=== PATIENT | male | born 1990 | race American Indian/Alaskan Native ===

== ENCOUNTER 2020-06-04 14:54 | Emergency (ER) | payer SELFPAY ==
--- NOTE | 2020-06-04 15:03 | Event Note ---
ED Screening Note ED Screening Note: l flank pain; nausea x 1 day difficulty starting urine pmh none psh none rx otc for pain This initial assessment/diagnostic orders/clinical plan/treatment(s) is/are subject to change based on patients health status, clinical progression and re- assessment by fellow clinical providers in the ED. Further treatment and workup at subsequent clinical providers discretion. Patient/guardian urged not to elope from the ED as their condition may be serious if not clinically assessed and managed. Initial orders include: zen montanez
[2020-06-04] MEDS ORDERED: SODIUM CHLORIDE 0.9% 1000 ML 1,000 ML IV ONE (15:04)
[2020-06-04] MEDS ORDERED: ONDANSETRON 4 MG/2 ML INJ IV ONE (15:04)
[2020-06-04 15:57] LABS: Bilirubin,Urine NEG (Negative); Blood,Urine NEG (Negative); Color,Urine Yellow (Yellow); Mucus,Urine 1+ /HPF; Protein,Urine <15 mg/dL mg/dL (Negative); RBC,Urine < 1.0 /HPF (0.0-6.0); Urobilinogen,Urine < 2.0 mg/dL (<2.0)
--- NOTE | 2020-06-04 16:39 | Cat Scan Report ---
CT ABDOMEN AND PELVIS WITHOUT CONTRAST INDICATION / CLINICAL INFORMATION: Left flank pain. TECHNIQUE: Axial CT images were obtained through the abdomen and pelvis without IV contrast. All CT scans at [facility] location are performed using CT dose reduction for ALARA by means of automated exposure control. COMPARISON: None available. FINDINGS: LOWER CHEST: No significant abnormality. LIVER: No significant abnormality. GALLBLADDER: No significant abnormality. BILE DUCTS: No significant abnormality. PANCREAS: No significant abnormality. SPLEEN: No significant abnormality. ADRENALS: No significant abnormality. RIGHT KIDNEY / URETER: No significant abnormality. LEFT KIDNEY / URETER: No significant abnormality. STOMACH / SMALL BOWEL: No significant abnormality. COLON: No significant abnormality. APPENDIX: No significant abnormality. PERITONEUM: No free fluid. No free air. No fluid collection. LYMPH NODES: No significant adenopathy. AORTA / ARTERIES: No significant abnormality. IVC / VEINS: No significant abnormality. URINARY BLADDER: No significant abnormality. REPRODUCTIVE ORGANS: No significant abnormality. ADDITIONAL FINDINGS: Small fat-containing left inguinal hernia with prominent vessels in the distal i nguinal canal in the scrotum. SKELETAL SYSTEM: No significant abnormality. IMPRESSION: 1. No stones or hydronephrosis. 2. Small fat-containing left inguinal hernia with prominent vessels in the distal inguinal canal in t he scrotum. Signer Name: Erasmo Bower MD Signed: 06/04/2020 4:34 PM Workstation Name: [id number]
[2020-06-04 18:28] LABS: Hematocrit 45.2 % (35.5-45.6); Hemoglobin 15.3 gm/dl (11.8-15.2); Mean Corpuscular HGB Conc 34 % (32-34); Mean Corpuscular Volume 92 fl (84-94); Red Blood Count 4.92 M/mm3 (3.65-5.03); Red Cell Distribution Width 12.5 % (13.2-15.2)
[2020-06-04 18:44] LABS: BUN/Creatinine Ratio 14; Blood Urea Nitrogen 13 mg/dL (9-20); Calcium 9.3 mg/dL (8.4-10.2); Hemolysis Index 16
[2020-06-04 18:48] LABS: Platelet Count 265 K/mm3 (140-440)
[2020-06-04 19:29] LABS: Basophils % (Manual) 0 % (0.0-1.8); Eosinophils % (Manual) 0 % (0.0-4.3); Platelet Clumps Few; Total Cells Counted 100
--- NOTE | 2020-06-04 20:16 | Ultrasound Report ---
ULTRASOUND SCROTUM INDICATION / CLINICAL INFORMATION: testicular pain. COMPARISON: None available. FINDINGS -- RIGHT TESTIS: Size = 4.0 x 1.9 cm. - Appearance: No significant abnormality. - Cyst or Mass: None. - Color Doppler Flow: No significant abnormality. EPIDIDYMIS: No significant abnormality. HYDROCELE: None. VARICOCELE: None demonstrated. FINDINGS -- LEFT TESTIS: Size = 4.2 x 2.5 cm. - Appearance: Minimally heterogeneous appearance with significantly increased vascularization. - Cyst or Mass: None. - Color Doppler Flow: No significant abnormality. Increased color flow. EPIDIDYMIS: Enlarged and hypervascular. HYDROCELE: Complex septated left hydrocele measuring 3.2 x 1.8 x 0.6 cm. VARICOCELE: Present. ADDITIONAL FINDINGS: None. IMPRESSION: 1. Findings consistent with left-sided epididymoorchitis. 2. Minimally complex left hydrocele. 3. Left sided varicocele. Signer Name: Benton Hayes MD Signed: 06/04/2020 8:11 PM Workstation Name: [id number]
[2020-06-04] MEDS ORDERED: oxyCODONE /ACETAMINOPHEN 5-325MG TAB PO ONE (20:49)
[2020-06-04] MEDS ORDERED: AZITHROMYCIN 250 MG TAB PO ONE (20:49)
[2020-06-04] MEDS ORDERED: cefTRIAXone/NS 1 GM/50 ML 1 GM/50 ML BAG IV ONE (20:49)
--- NOTE | 2020-06-04 21:18 | Emergency Department Report ---
ED Male HPI - General Chief complaint: Urogenital-Male Stated complaint: ABD PAIN Time Seen by Provider: 06/04/20 15:02 Source: patient Mode of arrival: Ambulatory Limitations: No Limitations - History of Present Illness Initial comments: Patient is a 30-year-old male presents emergency room with complaints of left testicular pain and swelling that began yesterday. He states he has pain to the left lower abdomen and left lower back. Patient states that 2 weeks ago he had pain in his left testicle that it spontaneously resolved. He states he is sexually active 3 days ago and reports that he uses protection. He states that he also has dysuria but denies any penile discharge. Patient states that he also has associated nausea and fever. He denies any vomiting or diarrhea. He denies any hematuria. He denies any past medical history. No allergies to medications. He states he has had STD history of gonorrhea in 2018 which he reports he received treatment for. - Related Data Previous Rx's Medication Instructions Recorded Last Taken Type Clotrimazole [Antifungal] 1 applicatio TP BID 14 Days #1 06/04/20 Unknown Rx cream..g. Doxycycline Hyclate [Doxycycline 100 mg PO BID 10 Days #20 tablet 06/04/20 Unknown Rx Hyclate TAB] Allergies Allergy/AdvReac Type Severity Reaction Status Date / Time No Known Allergies Allergy Verified 06/04/20 15:13 ED Review of Systems ROS: Stated complaint: ABD PAIN Other details as noted in HPI Comment: All other systems reviewed and negative ED Past Medical Hx - Past Medical History Previous Medical History?: No - Surgical History Past Surgical History?: No - Social History Smoking Status: Never Smoker Substance Use Type: Alcohol, Marijuana - Medications Home Medications: Home Medications Medication Instructions Recorded Confirmed Last Taken Type Clotrimazole [Antifungal] 1 applicatio TP BID 14 Days #1 06/04/20 Unknown Rx cream..g. Doxycycline Hyclate [Doxycycline 100 mg PO BID 10 Days #20 tablet 06/04/20 Unknown Rx Hyclate TAB] ED Physical Exam - General Limitations: No Limitations General appearance: alert, in no apparent distress - Head Head exam: Present: atraumatic, normocephalic - Eye Eye exam: Present: normal appearance - ENT ENT exam: Present: mucous membranes moist - Respiratory Respiratory exam: Present: normal lung sounds bilaterally. Absent: respiratory distress, wheezes, rales, rhonchi, stridor, chest wall tenderness, accessory muscle use, decreased breath sounds, prolonged expiratory - Cardiovascular Cardiovascular Exam: Present: regular rate, normal rhythm, normal heart sounds. Absent: systolic murmur, diastolic murmur, rubs, gallop - GI/Abdominal GI/Abdominal exam: Present: soft, normal bowel sounds. 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 Absent: urethral discharge External exam: Present: other (small area to the left side of the groin with erythematous macules with associated scaling at the edges, no blistering, no necrosis, no surrounding skin erythema) - Back Exam Back exam: Absent: CVA tenderness (R), CVA tenderness (L) - Neurological Exam Neurological exam: Present: alert, oriented X3 - Psychiatric Psychiatric exam: Present: normal affect, normal mood - Skin Skin exam: Present: warm, dry, intact ED Course Vital Signs 06/04/20 06/04/20 06/04/20 15:13 22:20 23:20 Temperature 100.2 F H 102.1 F H 98.4 F Pulse Rate 105 H 110 H 87 Respiratory 20 17 16 Rate Blood Pressure 111/71 Blood Pressure 117/75 [Right] O2 Sat by Pulse 97 99 100 Oximetry ED Medical Decision Making - Lab Data Result diagrams: 06/04/20 18:03 06/04/20 18:03 Lab Results 06/04/20 06/04/20 06/04/20 Range/Units 15:39 18:03 18:03 WBC 19.6 H (4.5-11.0) K/mm3 RBC 4.92 (3.65-5.03) M/mm3 Hgb 15.3 H (11.8-15.2) gm/dl Hct 45.2 (35.5-45.6) % MCV 92 (84-94) fl MCH 31 (28-32) pg MCHC 34 (32-34) % RDW 12.5 L (13.2-15.2) % Plt Count 265 (140-440) K/mm3 Add Manual Diff Complete Total Counted 100 Seg Neutrophils % Dustless Operator Seg Neuts % (Manual) 88.0 H (40.0-70.0) % Band Neutrophils % 0 % Lymphocytes % (Manual) 6.0 L (13.4-35.0) % Reactive Lymphs % (Man) 0 % Monocytes % (Manual) 6.0 (0.0-7.3) % Eosinophils % (Manual) 0 (0.0-4.3) % Basophils % (Manual) 0 (0.0-1.8) % Metamyelocytes % 0 % Myelocytes % 0 % Promyelocytes % 0 % Blast Cells % 0 % Nucleated RBC % Not Reportable Seg Neutrophils # Man 17.2 H (1.8-7.7) K/mm3 Band Neutrophils # 0.0 K/mm3 Lymphocytes # (Manual) 1.2 (1.2-5.4) K/mm3 Abs React Lymphs (Man) 0.0 K/mm3 Monocytes # (Manual) 1.2 H (0.0-0.8) K/mm3 Eosinophils # (Manual) 0.0 (0.0-0.4) K/mm3 Basophils # (Manual) 0.0 (0.0-0.1) K/mm3 Metamyelocytes # 0.0 K/mm3 Myelocytes # 0.0 K/mm3 Promyelocytes # 0.0 K/mm3 Blast Cells # 0.0 K/mm3 WBC Morphology Not Reportable Hypersegmented Neuts Not Reportable Hyposegmented Neuts Not Reportable Hypogranular Neuts Not Reportable Smudge Cells Not Reportable Toxic Granulation Not Reportable Toxic Vacuolation Not Reportable Dohle Bodies Not Reportable Pelger-Huet Anomaly Not Reportable Delbert Rods Not Reportable Platelet Estimate Not Reportable Clumped Platelets Few Plt Clumps, EDTA Not Reportable Large Platelets Not Reportable Giant Platelets Not Reportable Platelet Satelliting Not Reportable Plt Morphology Comment Not Reportable RBC Morphology Not Reportable Dimorphic RBCs Not Reportable Polychromasia Not Reportable Hypochromasia Not Reportable Poikilocytosis Not Reportable Anisocytosis Not Reportable Microcytosis Not Reportable Macrocytosis Not Reportable Spherocytes Not Reportable Pappenheimer Bodies Not Reportable Sickle Cells Not Reportable Target Cells Not Reportable Tear Drop Cells Not Reportable Ovalocytes Not Reportable Helmet Cells Not Reportable [place] Bodies Not Reportable [place]op Rings Not Reportable Exeter Cells Not Reportable Bite Cells Not Reportable Crenated Cell Not Reportable Elliptocytes Not Reportable Acanthocytes (Spur) Not Reportable Rouleaux Not Reportable Hemoglobin C Crystals Not Reportable Schistocytes Not Reportable Malaria parasites Not Reportable Dae Bodies Not Reportable Hem Pathologist Commnt No Sodium 134 L (137-145) mmol/L Potassium 4.0 (3.6-5.0) mmol/L Chloride 101.4 (98-107) mmol/L Carbon Dioxide 21 L (22-30) mmol/L Anion Gap 16 mmol/L BUN 13 (9-20) mg/dL Creatinine 0.9 (0.8-1.3) mg/dL Estimated GFR > 60 ml/min BUN/Creatinine Ratio 14 % Glucose 118 H (75-100) mg/dL Calcium 9.3 (8.4-10.2) mg/dL Urine Color Yellow (Yellow) Urine Turbidity Clear (Clear) Urine pH 6.0 (5.0-7.0) Ur Specific Fenton 1.012 (1.003-1.030) Urine Protein <15 mg/dl (Negative) mg/dL Urine Glucose (UA) Neg (Negative) mg/dL Urine Ketones Neg (Negative) mg/dL Urine Blood Neg (Negative) Urine Nitrite Neg (Negative) Urine Bilirubin Neg (Negative) Urine Urobilinogen < 2.0 (<2.0) mg/dL Ur Leukocyte Esterase Mod (Negative) Urine WBC (Auto) 8.0 H (0.0-6.0) /HPF Urine RBC (Auto) < 1.0 (0.0-6.0) /HPF U Epithel Cells (Auto) < 1.0 (0-13.0) /HPF Urine Mucus 1+ /HPF Vital Signs 06/04/20 06/04/20 06/04/20 15:13 22:20 23:20 Temperature 100.2 F H 102.1 F H 98.4 F Pulse Rate 105 H 110 H 87 Respiratory 20 17 16 Rate Blood Pressure 111/71 Blood Pressure 117/75 [Right] O2 Sat by Pulse 97 99 100 Oximetry - Radiology Data Radiology results: report reviewed cc: [facility] ABDOMEN AND PELVIS WITHOUT CONTRAST INDICATION / CLINICAL INFORMATION: Left flank pain. TECHNIQUE: Axial CT images were obtained through the abdomen and pelvis without IV contrast. All CT scans at this location are performed using CT dose reduction for ALARA by means of automated exposure control. COMPARISON: None available. FINDINGS: LOWER CHEST: No significant abnormality. LIVER: No significant abnormality. GALLBLADDER: No significant abnormality. BILE DUCTS: No significant abnormality. PANCREAS: No significant abnormality. SPLEEN: No significant abnormality. ADRENALS: No significant abnormality. RIGHT KIDNEY / URETER: No significant abnormality. LEFT KIDNEY / URETER: No significant abnormality. STOMACH / SMALL BOWEL: No significant abnormality. COLON: No significant abnormality. APPENDIX: No significant abnormality. PERITONEUM: No free fluid. No free air. No fluid collection. LYMPH NODES: No significant adenopathy. AORTA / ARTERIES: No significant abnormality. IVC / VEINS: No significant abnormality. URINARY BLADDER: No significant abnormality. REPRODUCTIVE ORGANS: No significant abnormality. ADDITIONAL FINDINGS: Small fat-containing left inguinal hernia with prominent vessels in the distal inguinal canal in the scrotum. SKELETAL SYSTEM: No significant abnormality. IMPRESSION: 1. No stones or hydronephrosis. 2. Small fat-containing left inguinal hernia with prominent vessels in the distal inguinal canal in the scrotum. Signer Name: Erasmo Bower MD Signed: 06/04/2020 4:34 PM Workstation Name: [id number] Transcribed By: DT Dictated By: Alejandro Bower MD Electronically Authenticated By: Alejandro Bower MD Signed Date/Time: 06/04/201633 DD/ 32 TD/TT: ULTRASOUND SCROTUM INDICATION / CLINICAL INFORMATION: testicular pain. COMPARISON: None available. FINDINGS -- RIGHT TESTIS: Size = 4.0 x 1.9 cm. - Appearance: No significant abnormality. - Cyst or Mass: None. - Color Doppler Flow: No significant abnormality. EPIDIDYMIS: No significant abnormality. HYDROCELE: None. VARICOCELE: None demonstrated. FINDINGS -- LEFT TESTIS: Size = 4.2 x 2.5 cm. - Appearance: Minimally heterogeneous appearance with significantly increased vascularization. - Cyst or Mass: None. - Color Doppler Flow: No significant abnormality. Increased color flow. EPIDIDYMIS: Enlarged and hypervascular. HYDROCELE: Complex septated left hydrocele measuring 3.2 x 1.8 x 0.6 cm. VARICOCELE: Present. ADDITIONAL FINDINGS: None. IMPRESSION: 1. Findings consistent with left-sided epididymoorchitis. 2. Minimally complex left hydrocele. 3. Left sided varicocele. Signer Name: Benton Saldivar MD Signed: 06/04/2020 8:11 PM Workstation Name: [id number] Transcribed By: HANSA Dictated By: BENTON SALDIVAR Electronically Authenticated By: BENTON SALDIVAR Signed Date/Time: 06/04/202010 DD/ 05 TD/TT: - Medical Decision Making Patient is a 30-year-old male presents emergency room with complaints of left testicular pain and swelling that began yesterday. He states he has pain to the left lower abdomen and left lower back. Patient states that 2 weeks ago he had pain in his left testicle that it spontaneously resolved. He states he is sexually active 3 days ago and reports that he uses protection. He states that he also has dysuria but denies any penile discharge. Patient states that he also has associated nausea and fever. He denies any vomiting or diarrhea. He denies any hematuria. He denies any past medical history. No allergies to medications. He states he has had STD history of gonorrhea in 2018 which he reports he received treatment for. vitals with low grade temp and mild tachycardia which improved after medication administration. 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 Examination consistent with orchitis, epididymitis, tinea cruris. Labs significant for white blood cell count of 19,000. UA shows 8 white blood cells and moderate leukocyte esterase. G/C sent by refinisher from the urine sample. CT abd pelvis without contrast: 1. No stones or hydronephrosis. 2. Small fat-containing left inguinal hernia with prominent vessels in the distal inguinal canal in the scrotum. scrotal US with doppler: 1. Findings consistent with left-sided epididymoorchitis. 2. Minimally complex left hydrocele. 3. Left sided varicocele. Patient given azithromycin, ceftriaxone, Percocet and symptoms improved. Discussed all results with patient and patient given his ultrasound report and his CT report. Patient given prescription for doxycycline and clotrimazole. Advised patient Please use medication as prescribed. Please follow-up with a general surgeon regarding the hernia. please follow up with a urologist regarding the testicular findings. [facility]. 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 Please have any partner tested and treated as well. Avoid sexual intercourse. Return to emergency room for any new or worsening symptoms. - Differential Diagnosis Orchitis, epididymitis, STD, UTI, hernia, varicocele, hydrocele, torsion Critical care attestation.: If time is entered above; I have spent that time in minutes in the direct care of this critically ill patient, excluding procedure time. ED Disposition Clinical Impression: Left epididymitis, Orchitis of left testicle, Varicocele, Tinea cruris Hydrocele Qualifiers: Hydrocele type: infected Qualified Code(s): N43.1 - Infected hydrocele Inguinal hernia Qualifiers: Obstruction and gangrene presence: without obstruction or gangrene Laterality: unilateral Recurrence: non-recurrent Qualified Code(s): K40.90 - Unilateral inguinal hernia, without obstruction or gangrene, not specified as recurrent Disposition: DC- TO HOME OR SELFCARE Is pt being admited?: No Does the pt Need Aspirin: No Condition: Stable Instructions: Sexually Transmitted Diseases (ED), Safe Sex (ED), Epididymo- orchitis (ED), Inguinal Hernia (ED), Jock Itch (ED) Additional Instructions: Please use medication as prescribed. Please follow-up with a general surgeon regarding the hernia. please follow up with a urologist regarding the testicular findings. Please follow-up with the health department or clinic for full STD panel. 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 Please have any partner tested and treated as well. Avoid sexual intercourse. Return to emergency room for any new or worsening symptoms. [facility] Address: [address] [place] [id number] [facility], performs STD panels Prescriptions: Clotrimazole [Antifungal] 1 applicatio TP BID 14 Days #1 cream..g. Doxycycline Hyclate [Doxycycline Hyclate TAB] 100 mg PO BID 10 Days #20 tablet Referrals: [facility] [Outside] - 2-3 Days EMORY PHAN MD [Staff Physician] - 2-3 Days SHARON GRAY MD [Staff Physician] - 2-3 Days Forms: STI Treatment and Prevention Time of Disposition: 21:53 Print Language: CZECH
[2020-06-04] MEDS ORDERED: IBUPROFEN 800 MG TAB PO ONE (22:28)
[2020-06-04] MEDS ORDERED: IBUPROFEN 800 MG TAB ONE (22:30)
[2020-06-04 23:23] VITALS: BP 117/75
== END 2020-06-04 23:20 | disposition home or self-care (01) ==
LOC: ED 14:54
DX: N45.1 Epididymitis (principal); N45.2 Orchitis; I86.1 Scrotal varices; B35.6 Tinea cruris; N43.3 Hydrocele, unspecified; K40.90 Unilateral inguinal hernia, without obstruction or gangrene, not specified as recurrent; F12.10 Cannabis abuse, uncomplicated; Z79.899 Other long term (current) drug therapy
CPT/HCPCS: 36415; 74176; 80048; 81001; 85007; 85025; 87591; 93975; 96365; 99284; J0696